=== PATIENT | female | born 1975 | race Caucasian/White ===

== ENCOUNTER → 2022-03-18 10:22 | Outpatient (CLI) | payer OTHER, SELFPAY ==
--- NOTE | ~2022-03-18 | MM_ITS ---
EXAMINATION: MM scrn tish implant BI w cynthia HISTORY: Screening mammogram TECHNIQUE: Craniocaudal and mediolateral oblique 3-D tomosynthesis images with implant displacement a nd synthetic 2-D images were generated. Craniocaudal and mediolateral oblique views of the breasts wi thout implant displacement were obtained using full field digital mammography. CAD analysis was submi tted and interpreted. COMPARISON: 06/14/2019 BREAST PARENCHYMAL COMPOSITION: There are scattered areas of fibroglandular density. FINDINGS: There is no evidence of suspicious mass, calcification, or architectural distortion to sugg est malignancy in either breast. There has been no suspicious interval change. IMPRESSION: 1. No mammographic evidence of malignancy. 2. Recommend routine screening mammography in one year. BI-RADS Category 1: Negative Reviewed, dictated and finalized at location A.
== END ==
PROVIDERS: Visit Provider Obstetrics & Gynecology
DX: Z12.31 Encounter for screening mammogram for malignant neoplasm of breast (principal)
CPT/HCPCS: 77063; 77067

== ENCOUNTER 2024-07-30 09:38 | Outpatient (CLI) | payer BC, SELFPAY ==
--- NOTE | ~2024-07-30 | MM_ITS ---
EXAMINATION: MM scrn tish implant BI w cynthia HISTORY: Screening mammogram TECHNIQUE: Craniocaudal and mediolateral oblique 3-D tomosynthesis images with implant displacement a nd synthetic 2-D images were generated. Craniocaudal and mediolateral oblique views of the breasts wi thout implant displacement were obtained using full field digital mammography. CAD analysis was submi tted and interpreted. COMPARISON: 03/18/2022, 06/14/2019 BREAST PARENCHYMAL COMPOSITION: There are scattered areas of fibroglandular density. FINDINGS: There is no evidence of suspicious mass, calcification, or architectural distortion to sugg est malignancy in either breast. There has been no suspicious interval change. IMPRESSION: No mammographic evidence of malignancy. Recommend routine screening mammography in one year. BI-RADS Category 1: Negative Reviewed, dictated and finalized at location . 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
== END 2024-07-30 09:39 | disposition home or self-care (01) ==
PROVIDERS: PCP Nurse Practitioner Family; Visit Provider Nurse Practitioner Family
DX: Z12.31 Encounter for screening mammogram for malignant neoplasm of breast (principal)
CPT/HCPCS: 77063; 77067

== ENCOUNTER 2024-08-31 12:04 | Outpatient (CLI) | payer BC, SELFPAY ==
--- NOTE | ~2024-08-31 | DEXA_ITS ---
Bone Density Report Name: NATALIE WEISS Age: 49 Sex: Female Ethnicity: White Date of : 1975 Indication: postmenopausal; screening for osteoporosis; history of glucocorticoids; rheumatoid arthritis; Referring Provider: JORGE LUIS, SAWYER Study: Bone densitometry was performed. Exam Date: August 31, 2024 Accession number: [id number] Bone Density: Region BMD T-score Z-score Classification AP Spine(L1-L4) 1.075 0.3 1.0 Normal Femoral Neck (Left) 0.738 -1.0 -0.2 Normal Total Hip (Left) 0.875 -0.6 -0.1 Normal Femoral Neck (Right) 0.714 -1.2 -0.4 Osteopenia Total Hip (Right) 0.913 -0.2 0.2 Normal Total Hip Mean 0.894 -0.4 0.1 Normal World Health Organization criteria for BMD impression classify patients as: Normal (T-score at or above -1.0), Osteopenia (T-score between -1.0 and -2.5), or Osteoporosis (T-score at or below -2.5). 10-year Fracture Risk(1): Major Osteoporotic Fracture 9.0% Hip Fracture 0.7% Reported Risk Factors: [place] (), Neck BMD=0.714, BMI=24.0, glucocorticoids, rheumatoid arthritis (1) FRAX(R) Version 3.08. Fracture probability calculated for an untreated patient. Fracture probability may be lower if the patient has received treatment. Clinical Information Provided by Patient: Has taken Glucocorticoids Has rheumatoid arthritis Patient maximum height was 66.0 Menopause Age: 39 Drinks caffeinated beverages Onset of menses at age 13 Number of children 1 Impression: The patient has low bone mass, based on the Right Femoral Neck T-score. The patient has an estimated ten-year risk of hip fracture of 0.7% and an estimated ten-year risk of major fracture of 9%, based on the WHO FRAX algorithm. The patient has risk factors, including: history of glucocorticoid therapy. Discussion: BONE DENSITY IS LOW AT ONE OR MORE SKELETAL SITES. This patient's lowest T-score is low at one or more skeletal sites. It meets the World Health Organization's (WHO) criteria for ?low bone mass? (T-score between -1.0 and -2.5). The patient's 10-year risk of fracture as calculated by FRAX is less than the threshold where pharmacological therapy is recommended by the National Osteoporosis Foundation (NOF). However, all treatment decisions require clinical judgment and consideration of individual patient factors, including patient preferences, comorbidities, previous drug use, risk factors not captured in the FRAX model (e.g., frailty, falls, vitamin D deficiency, increased bone turnover, interval significant decline in bone density) and possible under or overestimation of fracture risk by FRAX. The patient should follow a healthful lifestyle (good nutrition with adequate calcium and vitamin D, and appropriate weight-bearing exercise). Follow-Up: Consider repeating this study in 2 to 3 years to reassess this patient's status, or sooner if there is some new clinical indication. Reported by: TIFFANY on 08/31/2024 12:37:00 PM. Reviewed, dictated and finalized at location [facility]
--- OUTSIDE RECORDS SUMMARY | 2024-08-31 13:19 | XMS_ITS | Patient Health Record ---
Author Organization [facility] brandan Address [address] [place] [address] Care Team Providers Care Cook Specialty Name Role Phone Diane Caraballo Primary Care Provider [phone] Carlie Powell MD Unavailable Unavailable Reason For Referral No Information Medications Medication SIG (Take, Route, Frequency, Duration) Notes Start Date End Date Status Leflunomide 20 MG TAKE 1 TABLET(20 MG) BY MOUTH EVERY DAY Oral 06/10/2022 Active Ozempic (1 MG/DOSE) 4 MG/3ML inject 1 mg by subcutaneous route once weekly on the same day of each week Subcutaneous [id number] 02/10/2023 Active predniSONE 10 MG 4 po together x 2 da ys then 3 po x 2 days then 2 po x 2 days then 1 x2 days Oral 3 03/21/2023 Active Cimzia 2 X 200 MG/ML inject 1 milliliter (200 mg) by subcutaneous route every 2 weeks in the abdomen or thigh Subcutaneous 7.88371538709899D-00 02/10/2023 Active Immunizations Vaccine Route Administration Date Status Comme nts Infuenza, trivalent, recombinant, preservative free Unknown 04/23/2007 Administered migrated LegPatid= [id number] Date=04/23/2007 Vac= Influenza Infuenza, trivalent, recombinant, preservative free IM Intramuscular 06/25/2015 Administered Tdap Unknown 04/23/2007 Administered migrated LegPatid= [id number] Date=04/23/2007 Vac= Tdap Problems Problem Type SNOMED Code ICD Code Onset Dates Problem Status W/U Status Risk Notes Problem Lumbosacral spondylosis without myelopathy (80660090) Lumbar facet arthrop (721.3) Active confirmed Problem Atypical squamous cells of undetermined significance on cervical Papanicolaou smear (768714295) Papanicolaou smear of cervix with atypical squamous cells of undetermined significance (ASC-US) (795.01) Active confirmed Problem Vitamin D deficiency (56749614) Vitamin D deficiency, unspecified (E55.9) 0 Active confirmed Problem 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, 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 confirmed Problem Dermatitis (969945201) Dermatitis, unspecified (L30.9) Active confirmed Problem Rheumatoid arthritis (29155453) Rheumatoid arthritis, unspecified (M06.9) 1 Active confirmed Problem Behcet's disease (681243752) Behcet's disease (M35.2) 3 Active confirmed Problem Pain in limb (65236893) Pain in unspecified limb (M79.609) 3 Active confirmed Problem Urinary tract infectious disease (disorder) (53396992) Urinary tract infection, site not specified (N39.0) 3 Active confirmed Problem Dyspnea (485088335) Dyspnea, unspecified (R06.00) 0 Active confirmed Problem Dysphagia (79438465) Dysphagia, unspecified (R13.10) 0 Active confirmed Problem Eruption of skin (796245419) Rash and other nonspecific skin eruption (R21) 0 Active confirmed Problem Fatigue (82163152) Other fatigue (R53.83) 0 Active confirmed Problem Edema (08732863) Edema, unspecified (R60.9) 0 Active confirmed Problem Repeated prescription (890407764) Encounter for issue of repeat prescription (Z76.0) 3 Active confirmed Plan Of Treatment No Information Insurance Providers Payer Name Payer Address Payer Phone Subscriber Number Group Number Insured Name Patient Relationship to Insured Coverage Start Date Coverage End Date [employer] [address] [place] [address] [id number] Maryanne Lynch Self - patient is the insured DO NOT USE [id number] Maryanne Lynch Self - patient is the insured 1 [employer] [address] [address] [place] [address] [id number] [phone] Maryanne Lynch Self - patient is the insured BCBS [facility] [address] [place] [address] [id number] Maryanne Lynch Self - patient is the insured 1 1 [employer] [address] [address] [place] [address] [id number] SyedDaniel Other DO NOT USE [id number] Maryanne Lynch Self - patient is the insured 4 Medical (General) History Surgical History Surgery Date(Month/Year) Foot surgery; 2011-03-05 Hysterectomy: Ovaries in 2/2 bleeding; 2 Fat Freezing ; 2011-04-06 Appendectomy; 2011-04-06 Tonsillectomy; 2011-04-06 Breast lift, Date of Procedure: Jun 2012 ; 2012-11-29
--- OUTSIDE RECORDS SUMMARY | 2024-08-31 13:19 | XMS_ITS | Data Portability ---
Author Organization [place] - [facility], Main Office Address [address] [place] [address] Assessment No assessment recorded. Plan of Treatment Reminders Order Date Submit Date Provider Last Modified By Organization Details Last Modified Time Details Appointments None recorded. Lab None recorded. Referral rheumatolog ist referral - Please call patient to schedule an appointment . Thank you. 2023 024 [email or web address] [facility] Medicine - Rheumatology, [address] [place] [address], [address], 4 08:49:59 physical therapist referral - *Please call pt to schedule* 2023 024 [email or web address] [facility], [address] [place], [address], 4 08:44:31 rheumatolog ist referral 2022 023 [email or web address] Tasha James MD, [address] [place], [address], 4 09:01:47 Procedures None recorded. Surgeries None recorded. Imaging None recorded. Medication Orders methylpredn isolone 4 mg tablets in a dose pack 2023 024 [id number], [address], [place], [id number], 4 08:16:27 dextroamphe tamine-amph etamine 10 mg tablet 2023 024 [email or web address] [facility] #[id number], [address] [facility], [place], [id number], 4 11:24:17 dextroamphe tamine-amph etamine 20 mg tablet 2023 024 [id number], [address], [place], [id number], 4 08:29:49 diclofenac sodium 75 mg tablet,fabiola yed release 2023 024 [id number], [address] [place], [address], 4 08:16:38 Patient TargetsNo targets recorded. Patient InstructionsNo instructions recorded. Reason for Referral Packaging Sales Consultant Referral for Lupus erythematosus Referring Physician: Garima Villa [facility], Encounter Date: 05/07/2023 Physical Therapist Referral for Pain of right shoulder joint *Please call pt to schedule* Referring Physician: Garima Villa [facility], Encounter Date: 08/14/2023 Packaging Sales Consultant Referral for Lupus erythematosus RA, Lupus Please call patient to schedule an appointment. Thank you. Referring Physician: Ron Roche [facility] Medicine, Encounter Date: 01/21/2024 Results Created Date Observation Date Name Description Value Unit Range Abnormal Flag Note LastModifiedBy Organization Detail LastModifiedTime Result Notes None recorded. Problems Name Problem SNOMED Code Status Onset Date Resolution Date Notes Provider Name and Address Organization Details Recorded Time Lupus erythematos 679736307 Active 2022 Dmitriy Anderson RN null, [email or web address] 3 09:24:56 Rheumatoid arthritis 83855094 Active 2022 Garima Villa MD [address], [address], [address], [email or web address] 3 09:34:17 Attention deficit hyperactivi ty disorder 042943320 Active 2022 Garima Villa MD [address], [address], [place], [address], [email or web address] 3 09:39:10 Pain of right shoulder joint 6424175492341 9100 Active 2023 Garima Villa MD [address], [address], [place], [address], [employer] 08:14:52 Problem Notes None recorded. Procedures Surgical History Date Name Laterality Status Provider Name and Address Organization Details Recorded Time Hysterectomy completed Garima Villa MD [address], [address], [place], [address], [employer] 05/07/2023 09:33:10 tonsillectomy completed Garima Villa MD [address], [place], [address], [employer] 05/07/2023 09:33:57 Imaging Results None recorded. Procedure Notes None recorded. Medical Equipment None Reported. Allergies No known drug allergies Medications Name Sig Start Date Stop Date Status Note LastModified by Organization Details LastModified Time amoxicillin 500 mg capsule active Not Available Not Available Not Available methocarbam ol 500 mg tablet TAKE 1 TABLET BY MOUTH EVERY 8 HOURS NEEDED FOR MUSCLE SPASMS FOR 5 DAYS active Not Available Not Available No t Available ivermectin 3 mg tablet TAKE 4 TABLETS BY MOUTH EVERY DAY FOR 3 DAYS active Not Available Not Available No t Available prednisone 10 mg tablet TAKE 1 TABLET BY MOUTH EVERY DAY active Not Available Not Available No t Available azithromyci n 250 mg tablet active Not Available Not Available Not Available valacyclovi r 1 gram tablet TAKE 1 TABLET BY MOUTH EVERY DAY active Not Available Not Available No t Available prednisone 20 mg tablet TAKE 2 TABLETS BY MOUTH DAILY FOR 5 DAYS active Not Available Not Available No t Available dextroamphe tamine-amph etamine 10 mg tablet TAKE 1 TABLET BY MOUTH TWICE DAILY 02/22 completed Not Available Not Available Not Available phentermine 37.5 mg tablet TAKE ONE TABLET BY MOUTH DAILY active Not Available Not Available No t Available leflunomide 20 mg tablet Take 1 tablet every day by oral route. active Not Available Not Available No t Available amoxicillin 500 mg tablet TAKE 1 TABLET BY MOUTH TWICE DAILY 08/13 completed Not Available Not Available Not Available clindamycin 1 % topical gel APPLY TOPICALLY TO THE AFFECTED AREA DAILY active Not Available Not Available No t Available neomycin-po lymyxin-dex ameth 3.5 mg/mL-10,00 0 unit/mL-0.1 % eye drops SHAKE LIQUID AND INSTILL 1 DROP IN LEFT EYE THREE TIMES DAILY FOR 7 DAYS AND DISCONTIN UE active Not Available Not Available No t Available dextroamphe tamine-amph etamine 20 mg tablet Take 1 tablet twice a day by oral route. active Not Available Not Available No t Available budesonide 0.5 mg/2 mL suspension for nebulizatio n USE 1 VIAL VIA NEBULIZER TWICE DAILY NEEDED active Not Available Not Available No t Available diclofenac sodium 75 mg tablet,fabiola yed release TAKE 1 TABLET TWICE A DAY BY ORAL ROUTE NEEDED 2023 active Not Available Not Available Not Avai lable montelukast 10 mg tablet TAKE 1 TABLET BY MOUTH EVERY DAY active Not Available Not Available No t Available methylpredn isolone 4 mg tablets in a dose pack FOLLOW PACKAGE DIRECTION S active Not Available Not Available No t Available albuterol sulfate HFA 90 mcg/actuati on aerosol inhaler INHALE 2 PUFFS BY MOUTH EVERY 4 TO 6 HOURS NEEDED FOR COUGH OR BRONCHOSP ASM active Not Available Not Available No t Available progesteron e micronized 100 mg capsule TAKE 1 CAPSULE BY MOUTH EVERY NIGHT AT BEDTIME active Not Available Not Available No t Available nitrofurant oin monohydrate /macrocryst als 100 mg capsule TAKE 1 CAPSULE BY MOUTH TWICE DAILY FOR 7 DAYS active Not Available Not Available No t Available Evamist 1.53 mg/spray (1.7 %) transdermal spray APPLY 1 SPRAY TO THE WRIST ONCE DAILY active Not Available Not Available No t Available Ozempic 1 mg/dose (4 mg/3 mL) subcutaneou s pen injector active Not Available Not Available Not Available Vuity 1.25 % eye drops INSTILL 1 DROP IN BOTH EYES EVERY MORNING FOR HELP WITH READING active Not Available Not Available No t Available Vitals Date Recorded Body weight Body mass index (BMI) Body height Body temperature Heart rate Oxygen saturation Oxygen saturation in Arterial blood by Pulse oximetry Systolic blood pressure Diastolic blood pressure Provider Name and Address Organization Details Last Updated DateTime 3 76545.9 3 g 22.6 kg/m2 167.64 cm 98 [degF] 109 /min 98 % 98 % 122 mm[Hg] 82 mm[Hg] Dmitriy Anderson RN [facility] 3 09:23:39 Date Recorded Body height Body mass index (BMI) Body weight Body temperature Heart rate Oxygen saturation Oxygen saturation in Arterial blood by Pulse oximetry Systolic blood pressure Diastolic blood pressure Provider Name and Address Organization Details Last Updated DateTime 4 167.64 cm 23.7 kg/m2 01614.0 8 g 98.2 [degF] 92 /min 98 % 98 % 118 mm[Hg] 72 mm[Hg] Elizabeth Cameron LPN [place] [facility] 4 08:05:00 Date Recorded Body height Body mass index (BMI) Body weight Body temperature Heart rate Oxygen saturation Oxygen saturation in Arterial blood by Pulse oximetry Systolic blood pressure Diastolic blood pressure Provider Name and Address Organization Details Last Updated DateTime 4 167.64 cm 23.9 kg/m2 26925.6 7 g 98.1 [degF] 93 /min 98 % 98 % 120 mm[Hg] 80 mm[Hg] Dmitriy Anderson RN [facility] 4 08:15:52 Date Recorded Body height Body mass index (BMI) Body weight Body temperature Heart rate Oxygen saturation Oxygen saturation in Arterial blood by Pulse oximetry Systolic blood pressure Diastolic blood pressure Provider Name and Address Organization Details Last Updated DateTime 4 167.64 cm 22.9 kg/m2 78441.1 2 g 97 [degF] 98 /min 99 % 99 % 126 mm[Hg] 74 mm[Hg] Nicky Kwon RN [facility] 4 08:05:20 Social History Question Answer Notes LastModified by Organizat ion Details LastModified Time Tobacco Smoking Status Never Smoker Dmitriy Anderson RN [facility], [place] [facility] 05/07/2023 09:25:40 What Was The Date Of Your Most Recent Tobacco Screening? 05/07/2023 Information not available 05/07/2023 Sex: Unknown Functional Status None recorded. Mental Status None recorded. Family History Relationship Description Onset Age of this Age Resolved Age Notes LastModified by Organization Details LastModified Time Father No current problems or disability [email or web address] Not available 09:24:48 Mother Suicide Not available 05/07/2023 09:31:44 Medical History No medical history recorded. Gynecological HistoryNo gynecological history recorded. Obstetrics History GPAL:G 0 P 0 0 0 0 Past Encounters Encounter ID Performer Location Encounter Start Date Encounter Closed Date Diagnosis/Indication Diagnosis SNOMED-CT Code Diagnosis ICD10 Code Diagnosis Note [id number] Garima Villa MD [facility] Primary Care [facility] [address] [place] [address] 05/07/2023 09:10:06 05/07/2023 09:51:34 Lupus erythematosus 635122554 L93.0 M06.9 Needs new rheumatolo gistReferr al givenConti nue leflunomid e 20 mg daily Attention deficit hyperactivity disorder 385351366 F90.9 stableno refill needed [id number] Garima Villa MD [facility] Primary Care [facility] [address] [place] [address] 08/14/2023 07:57:30 08/14/2023 08:18:47 Pain of right shoulder joint 7180397458 8266635 M25.511 call in 4-6 weeks for ortho referral if no improvemen t [id number] Garima Villa MD [facility] Primary Care [facility] [address] [place] [address] 10/22/2023 08:11:36 10/22/2023 08:29:40 Attention deficit hyperactivity disorder 177291311 F90.9 no longer effectivei ncrease adderall to 20 bidPt understand s this medication has risk for abuse/depe ndence and agrees to take it only as prescribed and to guard from loss/theft f/u in 3 months or sooner if needed [id number] ROSA Jarrett [facility] Primary Care [facility] [address] [place] [address] 11/24/2023 11:01:59 11/24/2023 15:27:32 [id number] Ron Roche, ROSA [facility] Primary Care Karan bueno [address] [place] [address] 01/21/2024 07:59:07 01/21/2024 08:18:04 Lupus erythematosus 011275552 L93.0 M06.9 pt needs new referral for rheumatolo gist Long-term drug therapy 785132067 Z79.899 Pt denies any lending, selling, or borrowing of medication s. Denies any cp, sob, palpitatio ns, or unusual weight loss.Revie wed controlled substance agreement requiremen ts. Refill given.[place] PDMP checked today. Attention deficit hyperactivity disorder 137240160 F90.9 Health Concerns Section Related Observation LastModified by Organization Detai ls LastModified Time None Recorded Concern Status LastModified by Organization Details LastModified Time None Recorded Advance Directives Directive None Recorded Payers Encounter Date Sequence Insurance Name Policy Number Policy Serna Covered Member ID Serna Member ID Guarantor Name 05/07/2023 1 [place] [id number] Daniel Lynch [id number] Daniel Lynch 08/14/2023 1 [place] [id number] Daniel Lynch [id number] Daniel Lynch 10/22/2023 1 [place] [id number] Daniel Lynch [id number] Daniel Lynch 11/24/2023 1 [place] [id number] Daniel Lynch [id number] Daniel Lynch 01/21/2024 1 [place] [id number] Daniel Lynch [id number] Daniel Lynch Notes Date Note Type Note Provider Name and Address Organization Details Recorded Time 05/07/2023 text/html Here to ariel guy, has h/o SLE and RA. She has been seeing her chain tender at [facility] but they are going to retire, needs new specialist. Has been on leflunomide and recently failed humira. Rheumatology suggested new medication but insurance would not improve. Overall feeling ok, having some muscle aches. Takes adderall 10 mg bid as prescribed, no selling/lending/timothy ing, no heavy etoh or illegal drug use. It is very helpful for focus/concentration. Garima Villa MD [address] [address], [place], [address], [place] [facility] 05/07/2023 09:45:25 08/14/2023 text/html Fell in June in your garage, a few weeks after the fall she noticed pain in the right shoulder. Started to notice pain in AM. She has pain with certain movements, can't reach overhead, can't reach behind her, hard to sleep at night due to pain. Using tylenol arthritis, not helpful. No numbness/tingling, +weakness. Garima Villa MD [address] [address], [place], [address], [place] [facility] 09/02/2023 07:49:39 10/22/2023 text/html Here to ariel guy, has h/o SLE and RA. She has been seeing her chain tender at [facility] but they are going to retire, needs new specialist. Has been on leflunomide and recently failed humira. Rheumatology suggested new medication but insurance would not improve. Overall feeling ok, having some muscle aches. Takes adderall 10 mg bid as prescribed, no selling/lending/timothy ing, no heavy etoh or illegal drug use. It is very helpful for focus/concentration. updates 10/22/23: taking adderall 10 mg bid, she has been on it for some time and feels she has built a tolerance to it. It seems to wear off too soon in both AM and afternoon. No chest pain or sob Garima Villa MD [address], [facility] [address], [place], [address], [place] [facility] 10/25/2023 09:57:49 01/21/2024 text/html Pt is here for f/u Ron alfaro, MAJOR ASSEMBLER[employer]C [address], [facility] [address], [place], [address], [facility] [employer] [facility] 01/21/2024 08:16:42 OBGyn Episode No OBEpisode recorded.
--- OUTSIDE RECORDS SUMMARY | 2024-08-31 13:19 | XMS_ITS | Clinical Summary ---
Author Organization [facility] Address [address] [place] [address] Care Team Providers Care Load Haul Dump Operator Name Role Phone Carlie Powell MD Primary Care Provider Source Comments [facility],non-owned Affiliates and Associated Physician Practices is amultiple site organization consisting of ambulatory clinics and hospital sitesin [place], [place], [place] and [place]. This disclosure is being madepursuant to the Care Everywhere program and may not contain all information available regarding this patient. Last updated 18.[facility] Social History Tobacco Use Types Packs/Day Years Used Date Smoking Tobacco: Never Assessed Sex and Gender Information Value Date Recorded Sex Assigned at Not on file Gender Identity Not on file Sexual Orientation Not on file Plan of Treatment Health Maintenance Due Date Last Done Comments COLOGUARD (AGES 45-75) - COL ON CA SCREENING 1974 COLON MONITORING 1974 COLONOSCOPY - COLON CA SCREENING 1974 CT COLONOGRAPHY - COLON CA SCREENING 1974 Colorectal Cancer Screening 1974 FIT - COLON CA SCREENING 1974 FLEX SIG - COLON CA SCREENING 1974 LIPID TESTING 1974 MAMMOGRAM 1974 PAP SMEAR 1974 HIV SCREENING 1989 HEPATITIS C SCREENING 02/28/1992 DTAP/TDAP/TD VACCINES (1 - Tdap) 1993 HEPATITIS B VACCINE (1 of 3 - 19+ 3-dose series) 1993 COVID-19 VACCINE ( - 2023-2 5 season) 2024 INFLUENZA VACCINE (#1) 2024 PNEUMOCOCCAL VACCINE 50+ (1 of 1 - PCV) 2024 ZOSTER VACCINE (1 of 2) 2024 DEPRESSION SCREENING 06/08/2024 HIB VACCINE Aged Out No longer eligi ble based on patient's age to complete this topic HPV VACCINE Aged Out No longer eligi ble based on patient's age to complete this topic MENINGOCOCCAL (Group B) VACC INE SHARED DECISION-MAKING Aged Out No longer eligibl e based on patient's age to complete this topic MENINGOCOCCAL GROUPS A/C/Y/W VACCINE Aged Out No longer eligible b ased on patient's age to complete this topic Care Teams Load Haul Dump Operator Relationship Specialty Start Date End Date Carlie Powell MD [address] [facility] [address] [place] [id number] PCP - General 04/05/09
--- OUTSIDE RECORDS SUMMARY | 2024-08-31 13:19 | XMS_ITS | Encounter Summary ---
Author Organization [facility] Address [address] [place] [address] Care Team Providers Care Senior Programmer Name Role Phone Carlie Powell MD Primary Care Provider Encounter Details Date Type Department Care Team (Late st Contact Info) Description 10/02/2021 Lab Requisition [facility] [address] [place] [address] Carlie Powell MD [address] [facility] [address] [place] [address] Social History Tobacco Use Types Packs/Day Years Used Date Smoking Tobacco: Never Assessed Sex and Gender Information Value Date Recorded Sex Assigned at Not on file Gender Identity Not on file Sexual Orientation Not on file documented as of this encounter Plan of Treatment Not on file documented as of this encounter Procedures Procedure Name Priority Date/Time Associated Diagnosis Comments D-DIMER STAT 10/02/2021 9:50 AM CDT CBC W AUTO DIFFERENTIAL STAT 10/02/2021 9:50 AM CDT COMPREHENSIVE METABOLIC PANEL STAT 10/02/2021 9:50 AM CDT documented in this encounter Results * D-DIMER (10/02/2021 9:50 AM CDT) D-Dimer 0.34 0.27 - 0.50 ug/mL FEU 10/02/2021 12:18 PM CDT [facility] Blood BLOOD SPECIMEN / Unknown Venipuncture / Unknown 10/02/2021 9:50 AM CDT 10/02/2021 11:57 AM CDT [facility] - 10/02/2021 12:18 PM CDT In the absence of clinical symptoms, a value less than or equal to 0.5 mcg/mL FEU significantly decreases the probability of PE/DVT (negative predictive value >95%). 1 mcg/ml FEU = 1 Fibrinogen Equivalent Unit (approximates 0.5 mcg/mL of D- dimer). Carlie Powell MD LAB - COAGULATION O RDERABLES [facility] [address] [place] [address] * COMPREHENSIVE METABOLIC PANEL (10/02/2021 9:50 AM CDT) Glucose 79 70 - 105 mg/dL 10/02/2021 12:18 PM CDT [facility] Sodium 139 136 - 145 mmol/L 10/02/2021 12:18 PM CDT [facility] Potassium 4.3 3.5 - 5.1 mmol/L 10/02/2021 12:18 PM CDT [facility] Chloride 106 98 - 107 mmol/L 10/02/2021 12:18 PM CDT [facility] CO2 24 23 - 31 mmol/L 10/02/2021 12:18 PM CDT [facility] Calcium 9.1 8.4 - 10.4 mg/dL 10/02/2021 12:18 PM CDT [facility] Anion Gap 9 8 - 18 mmol/L 10/02/2021 12:18 PM CDT [facility] BUN 15 7 - 18.7 mg/dL 10/02/2021 12:18 PM CDT [facility] Creatinine 0.74 0.57 - 1.11 mg/dL 10/02/2021 12:18 PM CDT [facility] Alkaline Phosphatase 52 40 - 150 U/L 10/02/2021 12:18 PM CDT [facility] ALT 20 0 - 61 U/L 10/02/2021 12:18 PM CDT [facility] AST 14 5 - 34 U/L 10/02/2021 12:18 PM CDT [facility] Protein Total 6.6 6.4 - 8.3 gm/dL 10/02/2021 12:18 PM CDT [facility] Albumin 4.3 3.5 - 5.2 gm/dL 10/02/2021 12:18 PM CDT [facility] Bilirubin Total 0.3 0.2 - 1.2 mg/dL 10/02/2021 12:18 PM CDT [facility] eGFR by CKD-EPI >90 >=90 mL/min/1.7 3 m2 10/02/2021 12:18 PM CDT [facility] Blood BLOOD SPECIMEN / Unknown Venipuncture / Unknown 10/02/2021 9:50 AM CDT 10/02/2021 11:57 AM CDT [facility] - 10/02/2021 12:18 PM CDT eGFR result was calculated using the updated CKD-EPI Creatinine Equations (2020). Prior to go live 2021 the eGFR was calculated using the MDRD calculation. Please note Reference Range change. Carlie Powell MD LAB - CHEMISTRY ORD ERABLES [facility] [address] [place] [address] * (ABNORMAL) CBC WITH DIFFERENTIAL (10/02/2021 9:50 AM CDT) [facility] WBC 6.3 4.4 - 10.7 x10E9/L 10/02/2021 12:08 PM CDT [facility] WBC Corrected 10/02/2021 12:08 PM CDT [facility] RBC 4.97 3.80 - 5.20 x10E12/L 10/02/2021 12:08 PM CDT [facility] Hemoglobin 15.9(H) 12.0 - 15.6 gm/dL 10/02/2021 12:08 PM CDT [facility] Hematocrit 47.3(H) 35.9 - 45.5 % 10/02/2021 12:08 PM CDT [facility] MCV 95.2 80.7 - 98.3 fl 10/02/2021 12:08 PM CDT [facility] MCH 32.0 26.7 - 34.0 pg 10/02/2021 12:08 PM CDT [facility] MCHC 33.6 30.8 - 35.9 gm/dL 10/02/2021 12:08 PM [facility] Platelet Count 374 153 - 416 x10E9/L 10/02/2021 12:08 PM [facility] RDW-CV 12.2 12.1 - 14.9 % 10/02/2021 12:08 PM [facility] MPV 9.7 9.4 - 12.9 fl 10/02/2021 12:08 PM [facility] Neutrophils % 59.7 44.0 - 73.0 % 10/02/2021 12:08 PM [facility] Lymphocytes % 28.4 20.0 - 43.0 % 10/02/2021 12:08 PM [facility] Monocytes % 8.6 5.0 - 13.0 % 10/02/2021 12:08 PM [facility] Eosinophils % 1.1 0.0 - 6.0 % 10/02/2021 12:08 PM [facility] Basophils % 1.4 0.0 - 2.0 % 10/02/2021 12:08 PM [facility] Immature Granulocytes 0.8 0 - 1 % 10/02/2021 12:08 PM [facility] Neutrophil Absolute 3.76 2.01 - 7.14 x10E9/L 10/02/2021 12:08 PM [facility] Lymphocytes Absolute 1.79 1.07 - 3.94 x10E9/L 10/02/2021 12:08 PM [facility] Monocytes Absolute 0.54 0.26 - 1.07 x10E9/L 10/02/2021 12:08 PM [facility] Eosinophils Absolute 0.07 0 - 0.47 x10E9/L 10/02/2021 12:08 PM [facility] Basophils Absolute 0.09(H) 0 - 0.08 x10E9/L 10/02/2021 12:08 PM [facility] Immature Granulocytes Absolute 0.05 0.00 - 0.06 x10E9/L 10/02/2021 12:08 PM [facility] nRBC Auto 0 /100 WBC 10/02/2021 12:08 PM [facility] Blood BLOOD SPECIMEN / Unknown Venipuncture / Unknown 10/02/2021 9:50 AM CDT 10/02/2021 11:57 AM CDT Carlie Powell MD LAB - HEMATOLOGY OR DERABLES Performing Organization Address City/State/[facility] Co de Phone Number [facility] [address] [place], [place] [phone] documented in this encounter Visit Diagnoses Not on filedocumented in this encounter Care Teams Senior Programmer Relationship Specialty Start Date End Date Carlie Powell MD [address] [address] [place] [id number] PCP - General 04/05/09 documented as of this encounter
--- OUTSIDE RECORDS SUMMARY | 2024-08-31 13:20 | XMS_ITS ---
Author Organization [facility] brandan Address [address] [facility] [address] [place] [address] Care Team Providers Care Viscosity Worker Name Role Phone Diane Caraballo Primary Care Provider Carlie Powell MD Unavailable Unavailable zzzzMigration, zzzzProvider Unavailable Unav ailable REASON FOR VISIT [facility] [place] Encounters Encounter Location Date Provider Diagnosis [facility] [address] [address] [place] [address] 03/28/2023 zzzzProvider zzzzMigration Plan Of Treatment Medication Medication Name Sig Start Date Stop Date Notes Monurol 3 GM take 1 sachet (3 gram) dissolved in 3 to 4 ounces (1/2 cup) of water by oral route as a single dose Oral 0 12/25/2012 Cymbalta 30 MG take 1 capsule (30 mg) by oral route once daily with food Oral 1 for 30 08/17/2014 03/15/[address] 500 MG take 1 tablet (500 mg) by oral route 2 times per day with food Oral 2 03/20/2017 Naproxen 500 MG take 1 tablet (500 mg) by oral route 2 times per day with food Oral 2 08/15/2016 Cefuroxime Axetil 500 MG take 1 tablet ( 500 mg) by oral route every 12 hours for 10 days Oral 2 for 05/26/2019 06/05/2019 levoFLOXacin 500 MG take 1 tablet (500 mg) by oral route once daily for 10 days Report any tendon pain Oral 1 for 09/29/2012 10/09/2012 Proventil HFA 108 (90 Base) MCG/ACT inhale 2 puffs (180 mcg) by inhalation route every 4-6 hours as needed Inhalation 6 09/05/2019 Phentermine HCl 30 mg take 1 capsule (30 mg) by oral route once daily before breakfast for 30 days Oral 1 for 12/25/2019 01/24/2020 Medrol 4 MG take by oral route as directed per package instructions for 6 days Oral 0 for 08/29/2021 09/04/2021 Procardia XL 30 MG take 1 tablet (30 mg) by oral route once daily at bedtime Oral 1 for 07/24/2014 02/19/2015 Zithromax 250 MG take 2 tablets (500 mg) by oral route once daily for 1 day then 1 tablet (250 mg) by oral route once daily for 4 days Oral 1 for 12/16/2012 12/21/2012 Leflunomide 20 MG take 1 tablet (20 mg) by oral route once daily for 30 days Oral 1 for 12/13/2021 03/13/2022 Valtrex 500 MG take 1 tablet (500 mg) by oral route once daily Oral 1 07/30/2018 Imuran 50 mg take 1 tablet (50 mg) by oral route once daily for 30 days Oral 1 for 10/02/2015 12/01/2015 dilTIAZem HCl ER Beads 120 MG take 1 capsule (120 mg) by oral route once daily for 30 days Oral 1 for 04/14/2021 11/10/2021 Humira Pen 40 MG/0.4ML inject 0.4 milliliter (40 mg) by subcutaneous route every 2 weeks in the abdomen or thigh (rotate sites) Subcutaneous [id number] for 08/09/2021 08/04/2022 predniSONE 5 MG take 3 tablets by oral route daily for 7 days, then 2 tablets QD for 7 days, then 1 tablet QD f Oral 1 04/24/2022 Amoxicillin-Pot Clavulanate 875-125 MG take 1 tablet by oral route every 12 hours for 10 days Oral 2 for 02/01/2019 02/11/2019 predniSONE 10 MG Take one tablet orally for 5 days then half a tablet for 5 days then half tablet every other day for 5 doses and stop Oral for 08/02/2015 08/23/2015 Benzoyl Peroxide-Erythromycin 5-3 % apply to the affected area(s) by topical route 2 times per day in the morning and evening External 2 09/07/2019 Adderall 10 MG take 1 tablet (10 mg) by oral route 2 times per day before breakfast and at noon for 30 days Oral 2 for 02/24/2023 03/26/2023 Cyclobenzaprine HCl 10 MG take 1 tablet (10 mg) by oral route Q bed Oral 2 for 02/22/2015 06/22/2015 Benzonatate 200 MG take 1 capsule (200 mg) by oral route 3 times per day as needed for cough for 10 days Oral 3 for 05/12/2022 05/22/2022 Plaquenil 200 MG take 2 tablets (400 mg) by oral route once daily for 90 days Oral 1 for 08/27/2015 08/21/2016 HYDROcodone-Acetaminophe n 5-325 MG 1/2-one every 6hrs as needed Oral for 05/24/2012 09/21/2012 Cefdinir 300 MG take 1 capsule (300 mg) by oral route every 12 hours for 10 days Oral 2 for 11/08/2014 11/18/2014 Spironolactone 100 MG take 1 tablet (100 mg) by oral route once daily Oral 1 for 02/27/2014 05/28/2014 vicodin 5/500 1/2-one every 6 hrs as needed 11/29/2012 *Reorder from [employer] for eRx and Interaction Alerts* NIFEdipine ER Osmotic Release 30 MG take 1 tablet (30 mg) by oral route once daily for 30 days Oral 1 for 08/10/2013 12/08/2013 Qsymia 3.75-23 MG take 1 capsule by oral route once daily in the morning Oral 1 for 12/05/2014 03/05/2015 Phentermine HCl 37.5 MG TAKE 1 TABLET BY MOUTH EVERY DAY 1 OR 2 HOURS BEFORE BREAKFAST Oral 01/29/2018 01/29/2018 Spironolactone 50 MG take 1 tablet (50 mg) by oral route once daily for 30 days Oral 1 for 02/28/2013 07/28/2013 Topamax 25 MG take 1 tablet (25 mg) by oral route once daily Oral 1 for 02/05/2021 03/07/2021 Cimzia 2 X 200 MG/ML inject 1 milliliter (200 mg) by subcutaneous route every 2 weeks Subcutaneous [id number] for 04/21/2022 10/18/2022 Zithromax Z-Adán 250 MG take 2 tablets by oral route once daily for 1 day then 1 tablet by oral route once daily for 4 days Oral 1 for 5 11/26/2017 valACYclovir HCl 1 GM take 1 tablet (1,0 00 mg) by oral route 3 times per day for 7 days Oral 3 for 7 10/05/2013 10/12/2013 Clarithromycin 500 MG take 1 tablet (500 mg) by oral route every 12 hours for 10 days Oral 2 for 05/20/2022 05/30/2022 Wegovy 0.25 MG/0.5ML inject 0.25 mg by subcutaneous route once weekly on the same day of each week Subcutaneous [id number] 05/20/2022 Metrogel 1 % apply a thin layer to the affected area(s) of face after washing by topical QD ; rub in gently and completely External 1 for 09/05/2019 02/02/2020 Tetracaine HCl 0.5 % instill 1 drop in affected eye 4 times a day Ophthalmic 4 11/02/2016 Enbrel SureClick 50 MG/ML inject 1 milliliter (50 mg) by subcutaneous route once weekly for 30 days Subcutaneous [id number] for 02/18/2022 08/17/2022 Potassium Chloride ER 10 MEQ take 2 capsules (20 meq) by oral route twice daily with food Oral 1 01/10/2015 Ciprofloxacin HCl 0.30% instill 1 drop i nto affected eye(s) Q 2 hrs while awake for 2 days then 1 drop Q 4 hrs while awake for 5 days Ophthalmic 12 for 2 11/02/2016 TOPIRAMATE 25MG TABLETS TAKE 1 TABLET(25 MG) BY MOUTH EVERY DAY for 30 04/09/2021 06/08/2021 *Reorder from [employer] for eRx and Interaction Alerts* Bactrim DS 800-160 MG take 1 tablet by oral route every 12 hours for 7 days Oral 2 for 7 12/09/2011 12/16/2011 Phenazopyridine HCl 200 MG take 1 tablet (200 mg) by oral route 3 times per day after meals for 2 days Oral 3 for 2 08/13/2016 08/15/2016 Belsomra 10 mg take 1 po Q bed within 30 minutes of bedtime.Take only if at least 7 hrs of bedtime remain before planned time of waking. Oral 0 07/23/2017 Macrobid 100 MG take 1 capsule (100 mg) by oral route every 12 hours with food for 7 days Oral 2 for 7 07/31/2016 08/07/2016 Cipro 250 MG take 1 tablet (250 mg) by oral route every 12 hours for 7 days Oral 2 for 7 08/13/2016 08/20/2016 Ivermectin 1 % apply a pea-sized amount by topical route once daily to cover areas of face with thin layer avoiding the eyes and lips topical 1 09/06/2019 Lasix 40 MG take 1 tablet (40 mg) by oral route once daily for 30 days Oral 1 for 01/10/2015 05/10/2015 HYDROcodone-Acetaminophe n 10-325 MG take 1 tablet by oral route every 4-6 hours as needed for pain Oral 6 for 07/31/2016 08/30/2016 Valium 5 MG take 1 tablet (5 mg) by oral route q bed Oral 2 for 12/19/2015 05/17/2016 Vitamin D (Ergocalciferol) 70677 UNIT take 1 capsule (50,000 unit) by oral route once weekly for 90 days Oral [id number] for 09/04/2015 03/02/2016 Folic Acid 1 MG take 1 tablet (1 mg) by oral route once daily for 90 days Oral 1 for 08/02/2015 07/27/2016 Demerol 50 mg take half to one by oral route every 4 hours as needed Oral 6 01/25/2015 *Pick strength-form from [employer] for eRX* CellCept 500 MG take 1 tab ( 500 mg) by oral route 2 times per day Oral 2 for 07/14/2019 09/12/2019 traZODone HCl 50 MG take 1 tablet po Q bed Oral 3 01/25/2015 Darvocet-N 100 one po at onset MORRIS PRN 04/12/2010 *Reorder from [employer] for eRx and Interaction Alerts* Methotrexate Sodium 2.5 MG take 4 tablets by oral route once a week Oral [id number] for 07/23/2020 09/21/2020 sulfaSALAzine 500 MG take 1 tablet (500 mg) by oral route 2 times per day after meals Oral 4 for 60 09/27/2013 11/26/2013 Percocet 5-325 MG take 1 - 2 tablets by oral route every 4-6 hours as needed for 30 days Oral 6 for 09/02/2013 10/02/2013 Multivitamin 1 Every Day Oral 04/23/2007 Colchicine 0.6 MG 1 Every Day Oral 02/09/2009 PHENTERMINE 37.5MG TABLETS TAKE 1 TABLET BY MOUTH EVERY DAY 1-2 HOURS PRIOR TO BREAKFAST for 02/01/2021 04/02/2021 *Reorder from [employer] for eRx and Interaction Alerts* Neurontin 300 MG take 1 capsule (300 mg) by oral route Q bed Oral 3 for 08/01/2013 11/29/2013 Progress Notes * Maryanne LYNCH RDOB:[birth year] (49 yo F)Acc No.[id number]:03/28/2023 Patient: Jarrod Maryanne JUAN :1975 A ge:48 Y S ex:Female Phone: Address:[address] [place] [address], [address] * Refills Stop Adderall Tablet, 10 MG, Oral, 60, take 1 tablet (10 mg) by oral route 2 times per day before breakfast and at 2 pm for 30 days, 2, 30 Stop Adderall Tablet, 10 MG, Oral, 60, take 1 tablet (10 mg) by oral route 2 times per day before breakfast and at noon for 30 days, 2, 30 Stop HYDROcodone-Acetaminophen Tablet, 10-325 MG, Oral, 120, take 1 tablet by oral route every 4-6 hours as needed for pain for 30 days, 6, 30 Stop Macrobid Capsule, 100 MG, Oral, 14, take 1 capsule (100 mg) by oral route every 12 hours with food for 7 days, 2, 7 Stop Macrobid Capsule, 100 MG, Oral, 14, take 1 capsule (100 mg) by oral route every 12 hours with food, 2 Stop Methotrexate Sodium Tablet, 2.5 MG, Oral, 20, take 4 tablets by oral route once a week, [id number], 30 Stop Percocet Tablet, 5-325 MG, Oral, 50, take 1 - 2 tablets by oral route every 4-6 hours as needed, 6 Stop Phentermine HCl Tablet, 37.5 MG, Oral, 30, one alternating with one half every other day, 1, 30 Stop traZODone HCl Tablet, 50 MG, Oral, 30, take 1 tablet po Q bed, 3 Stop Valium Tablet, 5 MG, Oral, 30, take 1 tablet (5 mg) by oral route q bed, 2, 30 Stop Vitamin D (Ergocalciferol) Capsule, 19821 UNIT, Oral, 13, take 1 capsule (50,000 unit) by oral route once weekly for 90 days, [id number], 90 Stop Belsomra Tablet, 10 mg, Oral, 30, take 1 po Q bed within 30 minutes of bedtime.Take only if at least 7 hrs of bedtime remain before planned time of waking., 0 Stop Adderall Tablet, 10 MG, Oral, 60, take 1 tablet (10 mg) by oral route 2 times per day before breakfast and at 2 pm for 30 days, 2, 30 Stop Cefdinir Capsule, 300 MG, Oral, 20, take 1 capsule (300 mg) by oral route every 12 hours for 10 days, 2, 10 Stop Cyclobenzaprine HCl Tablet, 10 MG, Oral, 30, take 1 tablet (10 mg) by oral route Q bed, 2, 30 Stop HYDROcodone-Acetaminophen Tablet, 5-325 MG, Oral, 50, 1/2-one every 6hrs as needed, 30 Stop HYDROcodone-Acetaminophen Tablet, 10-325 MG, Oral, 180, take 1 tablet by oral route every 4-6 hours as needed for pain, 6 Stop HYDROcodone-Acetaminophen Tablet, 10-325 MG, Oral, 180, take 1 tablet by oral route every 4-6 hours as needed for pain, 6, 30 Stop Medrol Tablet Therapy Pack, 4 MG, Oral, 1, take as directed Stop Medrol Tablet Therapy Pack, 4 MG, Oral, 1, take by oral route as directed per package instructions, 0 Stop Phentermine HCl Tablet, 37.5 MG, Oral, 30, TAKE 1 TABLET BY MOUTH EVERY DAY 1 OR 2 HOURS BEFORE BREAKFAST Stop Plaquenil Tablet, 200 MG, Oral, 180, take 2 tablets (400 mg) by oral route once daily for 90 days, , 90 Stop predniSONE Tablet, 10 MG, Oral, 10, Take one tablet orally for 5 days then half a tablet for 5 days then half tablet every other day for 5 doses and stop, 21 Stop predniSONE Tablet, 5 MG, Oral, 42, take 3 tablets by oral route daily for 7 days, then 2 tablets QD for 7 days, then 1 tablet QD f, 1 Stop Valtrex Tablet, 500 MG, Oral, 30, take 1 tablet (500 mg) by oral route once daily, 1 Stop Zithromax Tablet, 250 MG, Oral, 6, take 2 tablets (500 mg) by oral route once daily for 1 day then 1 tablet (250 mg) by oral route once daily for 4 days, 1, 5 Stop Adderall Tablet, 10 MG, Oral, 60, take 1 tablet (10 mg) by oral route 2 times per day before breakfast and at noon no phentermine while taking, 2 Stop Adderall Tablet, 10 MG, Oral, 60, take 1 tablet (10 mg) by oral route 2 times per day before breakfast and at noon for 30 days, 2, 30 Stop CellCept Tablet, 500 MG, Oral, 60, take 1 tab ( 500 mg) by oral route 2 times per day, 2, 30 Stop Darvocet-N 100, 30.00, one po at onset MORRIS PRN Stop HYDROcodone-Acetaminophen Tablet, 10-325 MG, Oral, 180, take 1 tablet by oral route every 4-6 hours as needed for pain, 6 Stop HYDROcodone-Acetaminophen Tablet, 10-325 MG, Oral, 120, take 1 tablet by oral route every 4-6 hours as needed for pain for 30 days, 6, 30 Stop HYDROcodone-Acetaminophen Tablet, 10-325 MG, Oral, 180, take 1 tablet by oral route every 4-6 hours as needed for pain, 6, 30 Stop Leflunomide Tablet, 20 MG, Oral, 30, take 1 tablet (20 mg) by oral route once daily for 30 days, 1, 30 Stop Phentermine HCl Tablet, 37.5 MG, Oral, 30, TAKE 1 TABLET BY MOUTH EVERY DAY 1 OR 2 HOURS BEFORE BREAKFAST Stop Phentermine HCl Tablet, 37.5 MG, Oral, 30, TAKE 1 TABLET BY MOUTH ONCE DAILY 1 TO 2 HOURS BEFORE BREAKFAST Stop Phentermine HCl Tablet, 37.5 MG, Oral, 30, TAKE 1 TABLET BY MOUTH EVERY DAY 1 TO 2 HOURS BEFORE BREAKFAST Stop Plaquenil Tablet, 200 MG, Oral, 180, take 2 tablets (400 mg) by oral route once daily for 90 days, 90 Stop predniSONE Tablet, 5 MG, Oral, 42, take 3 tablets by oral route daily for 7 days, then 2 tablets QD for 7 days, then 1 tablet QD for 7 days, 1 Stop Spironolactone Tablet, 50 MG, Oral, 30, take 1 tablet (50 mg) by oral route once daily for 30 days, 1, 30 Stop Potassium Chloride ER Capsule Extended Release, 10 MEQ, Oral, 120, take 2 capsules (20 meq) by oral route twice daily with food, 1 Stop Wegovy Solution Auto-injector, 0.25 MG/0.5ML, Subcutaneous, 2, inject 0.25 mg by subcutaneous route once weekly on the same day of each week, [id number] Stop Benzonatate Capsule, 200 MG, Oral, 30, take 1 capsule (200 mg) by oral route 3 times per day as needed for cough for 10 days, 3, 10 Stop Macrobid Capsule, 100 MG, Oral, 14, take 1 capsule (100 mg) by oral route 2 times per day with food for 7 days, 2, 7 Stop predniSONE Tablet, 10 MG, Oral, 11, 4 po together x one day then 3 po x one day then 2 po x one day then one po daily x 2 days Stop Adderall Tablet, 10 MG, Oral, 60, take 1 tablet (10 mg) by oral route 2 times per day before breakfast and at noon for 30 days, 2, 30 Stop Adderall Tablet, 10 MG, Oral, 60, take 1 tablet (10 mg) by oral route 2 times per day before breakfast and at noon for 30 days, 2, 30 Stop Adderall Tablet, 10 MG, Oral, 60, take 1 tablet (10 mg) by oral route 2 times per day before breakfast and at noon for 30 days, 2, 30 Stop Amoxicillin-Pot Clavulanate Tablet, 875-125 MG, Oral, 20, take 1 tablet by oral route every 12 hours for 10 days Take with food and Eat some Yogurt Call MD if develop loose stools, 2, 10 Stop Cipro Tablet, 250 MG, Oral, 14, take 1 tablet (250 mg) by oral route every 12 hours for 7 days, 2, 7 Stop Cipro Tablet, 250 MG, Oral, 14, take 1 tablet (250 mg) by oral route every 12 hours for 7 days, 2, 7 Stop Enbrel SureClick Solution Auto-injector, 50 MG/ML, Subcutaneous, 4, inject 1 milliliter (50 mg) by subcutaneous route once weekly for 30 days, [id number], 30 Stop Folic Acid Tablet, 1 MG, Oral, 90, take 1 tablet (1 mg) by oral route once daily for 90 days, , 90 Stop Folic Acid Tablet, 1 MG, Oral, 90, take 1 tablet (1 mg) by oral route once daily for 90 days, , 90 Stop Phentermine HCl Tablet, 37.5 MG, Oral, 30, one daily, 1, 30 Stop Tetracaine HCl Solution, 0.5 %, Ophthalmic, 1, instill 1 drop in affected eye 4 times a day, 4 Stop valACYclovir HCl Tablet, 1 GM, Oral, 21, take 1 tablet (1,000 mg) by oral route 3 times per day for 7 days, 3, 7 Stop Adderall Tablet, 10 MG, Oral, 60, take 1 tablet (10 mg) by oral route 2 times per day before breakfast and at noon for 30 days, 2, 30 Stop Cefuroxime Axetil Tablet, 500 MG, Oral, 20, take 1 tablet (500 mg) by oral route every 12 hours for 10 days, 2, 10 Stop Naproxen Tablet, 500 MG, Oral, 60, take 1 tablet (500 mg) by oral route 2 times per day with food, 2 Stop Neurontin Capsule, 300 MG, Oral, 30, take 1 capsule (300 mg) by oral route Q bed, 3, 30 Stop Phentermine HCl Tablet, 37.5 MG, Oral, 30, take one-half tablet (18.75 mg) by oral route once daily before breakfast, 1 Stop Phentermine HCl Tablet, 37.5 MG, Oral, 30, take 1 tablet (37.5 mg) by oral route once daily one or two hours after breakfast for 30 days, 1, 30 Stop predniSONE Tablet, 10 MG, Oral, 20, 4 po together x 2 days then 3 po x 2 days then 2 po x 2 days then 1 x2 days, 3 Stop predniSONE Tablet, 10 MG, Oral, 20, 4 po together x 2 days then 3 po x 2 days then 2 po x 2 days then 1 x2 days, 3 Stop sulfaSALAzine Tablet, 500 MG, Oral, 0, 2 po Q PM and 2 PO BID if Flair, 4, 30 Stop sulfaSALAzine Tablet, 500 MG, Oral, 120, take 1 tablet (500 mg) by oral route 2 times per day after meals, 4, 60 Stop Adderall Tablet, 10 MG, Oral, 60, take 1 tablet (10 mg) by oral route 2 times per day before breakfast and at 2 pm for 30 days, 2, 30 Stop HYDROcodone-Acetaminophen Tablet, 10-325 MG, Oral, 180, take 1 tablet by oral route every 4-6 hours as needed for pain, 6 Stop HYDROcodone-Acetaminophen Tablet, 10-325 MG, Oral, 120, take 1 tablet by oral route every 4-6 hours as needed for pain, 6 Stop Methotrexate Sodium Tablet, 2.5 MG, Oral, 40, take 10 tablets once weekly, 1, 30 Stop Metrogel Gel, 1 %, External, 1, apply a thin layer to the affected area(s) after washing by topical route once daily ; rub in gently and completely for 30 days, 1, 30 Stop Phentermine HCl Tablet, 37.5 MG, Oral, 30, one daily, 1, 30 Stop predniSONE Tablet, 10 MG, Oral, 28, 4 po x 2 days then 3 po x 2 days then 2 x 2 days then 1 for 5 days then half a tablet for 5 days then half tablet every other day for 5 doses and stop Stop predniSONE Tablet, 10 MG, Oral, 20, 4 po QD x 2 days then 3po QD x 2 days then 2 po QD x 2 days then one x 2 days Stop predniSONE Tablet, 10 MG, Oral, 16, 4 po together x 1 days then 3 po x 2 days then 2 po x 2 days then 1 x2 days, 3 Stop traZODone HCl Tablet, 50 MG, Oral, 30, take 1 tablet (50 mg) by oral route once daily at bedtime, 1 Stop TOPIRAMATE 25MG TABLETS, 30, TAKE 1 TABLET(25 MG) BY MOUTH EVERY DAY, 30 Stop Adderall Tablet, 10 MG, Oral, 60, take 1 tablet (10 mg) by oral route 2 times per day before breakfast and at noon for 30 days, 2, 30 Stop Amoxicillin-Pot Clavulanate Tablet, 875-125 MG, Oral, 20, take 1 tablet by oral route every 12 hours, 2 Stop Folic Acid Tablet, 1 MG, Oral, 90, take 1 tablet (1 mg) by oral route once daily for 90 days, 1, 90 Stop Lasix Tablet, 40 MG, Oral, 30, take 1 tablet (40 mg) by oral route once daily for 30 days, 1, 30 Stop Macrobid Capsule, 100 MG, Oral, 14, take 1 capsule (100 mg) by oral route every 12 hours with food for 7 days, 2, 7 Stop Phenazopyridine HCl Tablet, 200 MG, Oral, 6, take 1 tablet (200 mg) by oral route 3 times per day after meals for 2 days, 3, 2 Stop Phenazopyridine HCl Tablet, 200 MG, Oral, 6, take 1 tablet (200 mg) by oral route 3 times per day after meals for 2 days, 3, 2 Stop Phentermine HCl Tablet, 37.5 MG, Oral, 30, one alternating with one half every other day, 1, 30 Stop Phentermine HCl Tablet, 37.5 MG, Oral, 30, one daily, 1, 30 Stop Phentermine HCl Tablet, 37.5 MG, Oral, 30, one daily, 1, 30 Stop Phentermine HCl Tablet, 37.5 MG, Oral, 30, take 1 tablet (37.5 mg) by oral route once daily one or two hours after breakfast for 30 days, 1, 30 Stop Phentermine HCl Tablet, 37.5 MG, Oral, 30, take 1 tablet (37.5 mg) by oral route once daily one or two hours after breakfast for 30 days, 1, 30 Stop Phentermine HCl Tablet, 37.5 MG, Oral, 30, TAKE 1 TABLET BY MOUTH EVERY DAY 1 OR 2 HOURS BEFORE BREAKFAST Stop Phentermine HCl Tablet, 37.5 MG, Oral, 30, TAKE 1 TABLET BY MOUTH ONCE DAILY 1 TO 2 HOURS BEFORE BREAKFAST Stop Phentermine HCl Tablet, 37.5 MG, Oral, 30, TAKE 1 TABLET BY MOUTH EVERY DAY 1 TO 2 HOURS BEFORE BREAKFAST Stop predniSONE Tablet, 10 MG, Oral, 20, 4 po QD x 2 days then 3po QD x 2 days then 2 po QD x 2 days then one x 2 days Stop predniSONE Tablet, 10 MG, Oral, 20, 4 po x 2 days then 3po x 2 days then 2 po x 2 days then one daily x 2 days, 4 Stop predniSONE Tablet, 5 MG, Oral, 42, take 3 tablets by oral route daily for 7 days, then 2 tablets QD for 7 days, then 1 tablet QD f, 1 Stop Spironolactone Tablet, 100 MG, Oral, 30, take 1 tablet (100 mg) by oral route once daily, 1, 30 Stop NIFEdipine ER Osmotic Release Tablet Extended Release 24 Hour, 30 MG, Oral, 30, take 1 tablet (30 mg) by oral route once daily for 30 days, 1, 30 Stop vicodin 5/500, 60, 1/2-one every 6 hrs as needed Stop Adderall Tablet, 10 MG, Oral, 60, take 1 tablet (10 mg) by oral route 2 times per day before breakfast and at noon no phentermine while taking, 2 Stop Cymbalta Capsule Delayed Release Particles, 30 MG, Oral, 30, take 1 capsule (30 mg) by oral route once daily with food, 1, 30 Stop Macrobid Capsule, 100 MG, Oral, 14, take 1 capsule (100 mg) by oral route every 12 hours with food for 7 days, 2, 7 Stop Percocet Tablet, 5-325 MG, Oral, 100, take 1 - 2 tablets by oral route every 4-6 hours as needed for 30 days, 6, 30 Stop Phentermine HCl Tablet, 37.5 MG, Oral, 30, TAKE 1 TABLET BY MOUTH EVERY DAY 1 TO 2 HOURS BEFORE BREAKFAST Stop Multivitamin Tablet, Oral, 30.00, 1 Every Day Stop Adderall Tablet, 10 MG, Oral, 60, take 1 tablet (10 mg) by oral route 2 times per day before breakfast and at noon for 30 days, 2, 30 Stop Ciprofloxacin HCl Solution, 0.30%, Ophthalmic, 1, instill 1 drop into affected eye(s) Q 2 hrs while awake for 2 days then 1 drop Q 4 hrs while awake for 5 days, 12, 2 Stop Clarithromycin Tablet, 500 MG, Oral, 20, take 1 tablet (500 mg) by oral route every 12 hours for 10 days, 2, 10 Stop HYDROcodone-Acetaminophen Tablet, 10-325 MG, Oral, 120, take 1 tablet by oral route every 4-6 hours as needed for pain for 30 days, 6, 30 Stop HYDROcodone-Acetaminophen Tablet, 10-325 MG, Oral, 180, take 1 tablet by oral route every 4-6 hours as needed for pain, 6, 30 Stop Topamax Tablet, 25 MG, Oral, 30, take 1 tablet (25 mg) by oral route once daily, 1, 30 Stop vicodin 5/500, 60, 1/2-one every 6 hrs as needed Stop Adderall Tablet, 10 MG, Oral, 60, take 1 tablet (10 mg) by oral route 2 times per day before breakfast and at noon no phentermine while taking, 2 Stop Adderall Tablet, 10 MG, Oral, 60, take 1 tablet (10 mg) by oral route 2 times per day before breakfast and at noon no phentermine while taking, 2 Stop Adderall Tablet, 10 MG, Oral, 60, take 1 tablet (10 mg) by oral route 2 times per day before breakfast and at 2 pm for 30 days, 2, 30 Stop Adderall Tablet, 10 MG, Oral, 60, take 1 tablet (10 mg) by oral route 2 times per day before breakfast and at noon for 30 days, 2, 30 Stop Amoxicillin-Pot Clavulanate Tablet, 875-125 MG, Oral, 20, take 1 tablet by oral route every 12 hours for 10 days, 2, 10 Stop Cyclobenzaprine HCl Tablet, 10 MG, Oral, 30, take one-half tablet (5 mg) by oral route 3 times per day as needed, 3 Stop Humira Pen Pen-injector Kit, 40 MG/0.4ML, Subcutaneous, 2, inject 0.4 milliliter (40 mg) by subcutaneous route every 2 weeks in the abdomen or thigh (rotate sites), [id number], 30 Stop HYDROcodone-Acetaminophen Tablet, 10-325 MG, Oral, 120, take 1 tablet by oral route every 4-6 hours as needed for pain, 6 Stop HYDROcodone-Acetaminophen Tablet, 10-325 MG, Oral, 180, take 1 tablet by oral route every 4-6 hours as needed for pain, 6, 30 Stop HYDROcodone-Acetaminophen Tablet, 10-325 MG, Oral, 180, take 1 tablet by oral route every 4-6 hours as needed for pain, 6, 30 Stop Phentermine HCl Tablet, 37.5 MG, Oral, 30, one alternating with one half every other day, 1, 30 Stop Phentermine HCl Tablet, 37.5 MG, Oral, 30, one alternating with one half every other day, 1, 30 Stop predniSONE Tablet, 10 MG, Oral, 11, 4 po together x one day then 3 po x one day then 2 po one day then one po x 2days, 1 Stop predniSONE Tablet, 10 MG, Oral, 20, 4 po x 2 days then 3po x 2 days then 2 po x 2 days then one daily x 2 days, 4 Stop predniSONE Tablet, 10 MG, Oral, 20, 4 po daily x 2 days then 3 po daily x 2 days then 2 daily x 2 days then one daily x 2 days, 1 Stop Proventil HFA Aerosol Solution, 108 (90 Base) MCG/ACT, Inhalation, 1, inhale 2 puffs (180 mcg) by inhalation route every 4-6 hours as needed, 6 Stop Adderall Tablet, 10 MG, Oral, 60, take 1 tablet (10 mg) by oral route 2 times per day before breakfast and at noon for 30 days, 2, 30 Stop Adderall Tablet, 10 MG, Oral, 60, take 1 tablet (10 mg) by oral route 2 times per day before breakfast and at noon for 30 days, 2, 30 Stop Adderall Tablet, 10 MG, Oral, 60, take 1 tablet (10 mg) by oral route 2 times per day before breakfast and at noon for 30 days, 2, 30 Stop Bactrim DS Tablet, 800-160 MG, Oral, 14, take 1 tablet by oral route every 12 hours for 7 days, 2, 7 Stop Cefdinir Capsule, 300 MG, Oral, 20, take 1 capsule (300 mg) by oral route every 12 hours for 10 days, 2, 10 Stop HYDROcodone-Acetaminophen Tablet, 10-325 MG, Oral, 180, take 1 tablet by oral route every 4-6 hours as needed for pain, 6, 30 Stop Methotrexate Sodium Tablet, 2.5 MG, Oral, 28, take 7 tablets once weekly, 1, 30 Stop Metrogel Gel, 1 %, External, 1, apply a thin layer to the affected area(s) of face after washing by topical QD ; rub in gently and completely, 1, 30 Stop Phenazopyridine HCl Tablet, 200 MG, Oral, 6, take 1 tablet (200 mg) by oral route 3 times per day after meals for 2 days, 3, 2 Stop Phentermine HCl Tablet, 37.5 MG, Oral, 30, one daily, 1, 30 Stop Phentermine HCl Tablet, 37.5 MG, Oral, 30, take 1 tablet (37.5 mg) by oral route once daily one or two hours after breakfast for 30 days, 1, 30 Stop Phentermine HCl Tablet, 37.5 MG, Oral, 30, take 1 tablet (37.5 mg) by oral route once daily one or two hours after breakfast for 30 days, 1, 30 Stop Phentermine HCl Tablet, 37.5 MG, Oral, 30, take 1 tablet (37.5 mg) by oral route once daily one or two hours after breakfast for 30 days, 1, 30 Stop Phentermine HCl Tablet, 37.5 MG, Oral, 30, TAKE 1 TABLET BY MOUTH EVERY DAY 1 OR 2 HOURS BEFORE BREAKFAST Stop Phentermine HCl Tablet, 37.5 MG, Oral, 30, TAKE 1 TABLET BY MOUTH EVERY DAY 1 OR 2 HOURS BEFORE BREAKFAST Stop predniSONE Tablet, 10 MG, Oral, 10, Take one tablet orally for 5 days then half a tablet for 5 days then half tablet every other day for 5 doses and stop, 21 Stop Qsymia Capsule Extended Release 24 Hour, 3.75-23 MG, Oral, 30, take 1 capsule by oral route once daily in the morning, 1, 30 Stop TOPIRAMATE 25MG TABLETS, 30, TAKE 1 TABLET(25 MG) BY MOUTH EVERY DAY, 30 Stop Amoxicillin-Pot Clavulanate Tablet, 875-125 MG, Oral, 20, take 1 tablet by oral route every 12 hours for 10 days, 2, 10 Stop Colchicine Tablet, 0.6 MG, Oral, 30.00, 1 Every Day Stop Demerol Tablet, 50 mg, Oral, 180, take half to one by oral route every 4 hours as needed, 6 Stop Humira Pen Pen-injector Kit, 40 MG/0.4ML, Subcutaneous, 2, inject 0.4 milliliter (40 mg) by subcutaneous route every 2 weeks in the abdomen or thigh (rotate sites), [id number], 30 Stop HYDROcodone-Acetaminophen Tablet, 5-325 MG, Oral, 60, take one half to 1 tablet by oral route every 4-6 hours as needed for pain, 6 Stop HYDROcodone-Acetaminophen Tablet, 10-325 MG, Oral, 120, take 1 tablet by oral route every 4-6 hours as needed for pain, 6 Stop HYDROcodone-Acetaminophen Tablet, 10-325 MG, Oral, 180, take 1 tablet by oral route every 4-6 hours as needed for pain, 6, 30 Stop Ivermectin cream, 1 %, topical, 1, apply a pea-sized amount by topical route once daily to cover areas of face with thin layer avoiding the eyes and lips, 1 Stop Methotrexate Sodium Tablet, 2.5 MG, Oral, 20, take 4 tablets once weekly, 1, 30 Stop Methotrexate Sodium Tablet, 2.5 MG, Oral, 20, take 4 tablets once weekly, 1, 30 Stop Phentermine HCl Tablet, 37.5 MG, Oral, 30, take 1 tablet (37.5 mg) by oral route once daily one or two hours after breakfast for 30 days, 1, 30 Stop Phentermine HCl Tablet, 37.5 MG, Oral, 30, TAKE 1 TABLET BY MOUTH EVERY DAY 1 TO 2 HOURS BEFORE BREAKFAST Stop Phentermine HCl Tablet, 37.5 MG, Oral, 30, TAKE 1 TABLET BY MOUTH EVERY DAY 1 TO 2 HOURS BEFORE BREAKFAST Stop Phentermine HCl Tablet, 37.5 MG, Oral, 30, TAKE 1 TABLET BY MOUTH EVERY DAY 1 TO 2 HOURS BEFORE BREAKFAST Stop predniSONE Tablet, 10 MG, Oral, 20, 4 po together x 2 days then 3 po x 2 days then 2 po x 2 days then 1 x2 days, 3 Stop predniSONE Tablet, 5 MG, Oral, 42, take 3 tablets by oral route daily for 7 days, then 2 tablets QD for 7 days, then 1 tablet QD for 7 days, 1 Stop Spironolactone Tablet, 50 MG, Oral, 30, take 1 tablet (50 mg) by oral route once daily for 30 days, 1, 30 Stop Zithromax Z-Adán Tablet, 250 MG, Oral, 6, take 2 tablets by oral route once daily for 1 day then 1 tablet by oral route once daily for 4 days, 1, 5 Stop Cimzia Prefilled Syringe Kit, 2 X 200 MG/ML, Subcutaneous, 1, inject 1 milliliter (200 mg) by subcutaneous route every 2 weeks, [id number], 30 Stop Adderall Tablet, 10 MG, Oral, 60, take 1 tablet (10 mg) by oral route 2 times per day before breakfast and at 2 pm for 30 days, 2, 30 Stop HYDROcodone-Acetaminophen Tablet, 10-325 MG, Oral, 180, take 1 tablet by oral route every 4-6 hours as needed for pain, 6, 30 Stop Leflunomide Tablet, 20 MG, Oral, 30, TAKE 1 TABLET(20 MG) BY MOUTH EVERY DAY, 30 Stop Monurol Packet, 3 GM, Oral, 1, take 1 sachet (3 gram) dissolved in 3 to 4 ounces (1/2 cup) of water by oral route as a single dose, 0 Stop Phentermine HCl Tablet, 37.5 MG, Oral, 30, one alternating with one half every other day, 1, 30 Stop Phentermine HCl Tablet, 37.5 MG, Oral, 30, TAKE 1 TABLET BY MOUTH EVERY DAY 1 OR 2 HOURS BEFORE BREAKFAST Stop predniSONE Tablet, 10 MG, Oral, 20, 4 po daily x 2 days then 3 po daily x 2 days then 2 daily x 2 days then one daily x 2 days, 1 Stop predniSONE Tablet, 10 MG, Oral, 20, 4 po together x 2 days then 3 po x 2 days then 2 po x 2 days then 1 x2 days, 3 Stop Valium Tablet, 5 MG, Oral, 30, one po q bed, 4, 30 Stop Valium Tablet, 5 MG, Oral, 30, one po q bed, 4, 30 Stop PHENTERMINE 37.5MG TABLETS, 30, TAKE 1 TABLET BY MOUTH EVERY DAY 1 TO 2 HOURS BEFORE BREAKFAST, 30 Stop PHENTERMINE 37.5MG TABLETS, 30, TAKE 1 TABLET BY MOUTH EVERY DAY 1-2 HOURS PRIOR TO BREAKFAST, 30 Stop Adderall Tablet, 10 MG, Oral, 60, take 1 tablet (10 mg) by oral route 2 times per day before breakfast and at noon for 30 days, 2, 30 Stop Adderall Tablet, 10 MG, Oral, 60, take 1 tablet (10 mg) by oral route 2 times per day before breakfast and at noon for 30 days, 2, 30 Stop Adderall Tablet, 10 MG, Oral, 60, take 1 tablet (10 mg) by oral route 2 times per day before breakfast and at noon for 30 days, 2, 30 Stop Amoxicillin-Pot Clavulanate Tablet, 875-125 MG, Oral, 20, take 1 tablet by oral route every 12 hours for 10 days, 2, 10 Stop HYDROcodone-Acetaminophen Tablet, 5-325 MG, Oral, 30.00, 1/2-one every 6hrs as needed Stop Phentermine HCl Tablet, 37.5 MG, Oral, 30, one daily, 1, 30 Stop Phentermine HCl Tablet, 37.5 MG, Oral, 30, take 1 tablet (37.5 mg) by oral route once daily one or two hours after breakfast for 30 days, 1, 30 Stop Phentermine HCl Capsule, 30 mg, Oral, 30, take 1 capsule (30 mg) by oral route once daily before breakfast for 30 days, 1, 30 Stop predniSONE Tablet, 5 MG, Oral, 42, take 3 tablets by oral route daily for 7 days, then 2 tablets QD for 7 days, then 1 tablet QD for 7 days, 1 Stop Procardia XL Tablet Extended Release 24 Hour, 30 MG, Oral, 30, take 1 tablet (30 mg) by oral route once daily at bedtime, 1, 30 Stop Valium Tablet, 5 MG, Oral, 30, one po q bed, 4, 30 Stop Cimzia Prefilled Syringe Kit, 2 X 200 MG/ML, Subcutaneous, 1, inject 2 milliliters (400mg) by subcutaneous route Q2W for 30 days, then 1ml (200mg) subcutaneous injection every 2 weeks., 0.5, 30 Stop Adderall Tablet, 10 MG, Oral, 60, take 1 tablet (10 mg) by oral route 2 times per day before breakfast and at noon for 30 days, 2, 30 Stop Adderall Tablet, 10 MG, Oral, 60, take 1 tablet (10 mg) by oral route 2 times per day before breakfast and at noon for 30 days, 2, 30 Stop Adderall Tablet, 10 MG, Oral, 60, take 1 tablet (10 mg) by oral route 2 times per day before breakfast and at noon for 30 days, 2, 30 Stop Benzoyl Peroxide-Erythromycin Gel, 5-3 %, External, 1, apply to the affected area(s) by topical route 2 times per day in the morning and evening, 2 Stop Cymbalta Capsule Delayed Release Particles, 30 MG, Oral, 30, take 1 capsule (30 mg) by oral route once daily with food, 1, 30 Stop dilTIAZem HCl ER Beads Capsule Extended Release 24 Hour, 120 MG, Oral, 30, take 1 capsule (120 mg) by oral route once daily for 30 days, 1, 30 Stop Imuran Tablet, 50 mg, Oral, 30, take 1 tablet (50 mg) by oral route once daily for 30 days, 1, 30 Stop Leflunomide Tablet, 20 MG, Oral, 30, take 1 tablet (20 mg) by oral route once daily for 30 days, 1, 30 Stop levoFLOXacin Tablet, 500 MG, Oral, 10, take 1 tablet (500 mg) by oral route once daily for 10 days Report any tendon pain, 1, 10 Stop Medrol Tablet Therapy Pack, 4 MG, Oral, 1, take by oral route as directed per package instructions, 0 Stop Medrol Tablet Therapy Pack, 4 MG, Oral, 1, take by oral route as directed per package instructions for 6 days, 0, 6 Stop Medrol Tablet Therapy Pack, 4 MG, Oral, 1, take by oral route as directed per package instructions for 6 days, 0, [address] Tablet Delayed Release, 500 MG, Oral, 60, take 1 tablet (500 mg) by oral route 2 times per day with food, 2 Stop Plaquenil Tablet, 200 MG, Oral, 180, take 2 tablets (400 mg) by oral route once daily for 90 days, 1, 90 Stop predniSONE Tablet, 10 MG, Oral, 20, 4 po daily x 2 days then 3po daily x 2 days then 2 po daily x 2 days then one x 2 days, 10 Stop Valium Tablet, 5 MG, Oral, 30, one po q bed, 4, 30 Subjective: * Chief Complaints: * E MR-Zeyad * Medical History: * Surgical History: * Hospitalization/Major Diagno stic Procedure: * Medications: Objective: * Vitals: * Physical Examination: Assessment: Plan: * Treatment: * Procedure Codes: * true * Date: Generated for Martha pearson/Blaine/Kwabena on: 0 08/31/2024 01:19 PM CDT
--- OUTSIDE RECORDS SUMMARY | 2024-08-31 13:20 | XMS_ITS | Clinical Summary ---
Author Organization [facility] Address [address] [place] [address] Care Team Providers Care Craft Center Director Name Role Phone Carlie Powell MD Primary Care Provider Allergies No known active allergies Medications dilTIAZem CD 120 mg 24 hr capsule Take 120 mg by mouth daily 04/15/2021 Active leflunomide (ARAVA) 20 mg tablet Take 20 mg by mouth daily 04/09/2021 Active predniSONE (DELTASONE) 10 mg tablet 04/14/2021 Active Active Problems Problem Noted Date Diagnosed Date Tachycardia 04/16/2021 Assessment & Plan (04/16/2021 2:29 PM MANAGER MASS): Incidentally discovered sinus tachycardia. Asymptomatic. Resting heart rate appears to be mildly elevated, with exaggerated heart rate responses to moderate exertion. Occurring in the context of a structurally normal heart. No ECG changes concerning for inherited arrhythmia syndrome or predisposition to arrhythmia. Agree with ambulatory cardiac monitoring as already ordered in order to more thoroughly assess heart rate distributions and screen for arrhythmia. 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 I have reassured the patient that her heart is structurally normal and that there is no existing evidence that she has any abnormal heart rhythms. This is likely to improve with time, and no intervention is required in the absence of symptoms. --OK to try diltiazem (as prescribed by PCP) to assess for symptom improvement. If no improvement in dyspnea, recommend stopping. --Await results of 30d monitor. Will review and discuss with patient when available. --Encourage exercise and weight loss. --F/u PRN or sooner if abnormal results on monitor. Facial rash 05/26/2017 Muscle weakness 05/26/2017 Joint pain 05/08/2017 Facial erythema 05/08/2017 Surgical History Surgery Date Site/Laterality Comments HYSTERECTOMY Family History Medical History Relation Name Comments No Known Problems Father No Known Problems Mother Relation Name Status Comments Father Mother Social History Tobacco Use Types Packs/Day Years Used Date Smoking Tobacco: Never Smokeless Tobacco: Never Alcohol Use Standard Drinks/Week Comments Yes 0 (1 standard drink = 0.6 oz pur e alcohol) Comments Unknown Sex and Gender Information Value Date Recorded Sex Assigned at Not on file Legal Sex Female 10:03 AM MANAGER MASS Gender Identity Not on file Sexual Orientation Not on file Obstetrics History Last Filed Vital Signs Vital Sign Reading Time Taken Comments Blood Pressure 141/80 04/16/2021 1:36 PM MANAGER MASS Pulse 94 04/16/2021 1:36 PM MANAGER MASS Temperature 36.8 C (98.3 F) 05/26/2017 2:22 PM MANAGER MASS Respiratory Rate 18 04/16/2021 1:36 PM MANAGER MASS Oxygen Saturation 97% 05/26/2017 2:22 PM MANAGER MASS Inhaled Oxygen Concentration - - Weight 71.3 kg (157 lb 3.2 oz) 04/16/2021 1:36 P M MANAGER MASS Height 167.6 cm (5' 6 ) 04/16/2021 1:36 PM MANAGER MASS Body Mass Index 25.37 04/16/2021 1:36 PM MANAGER MASS Plan of Treatment Health Maintenance Due Date Last Done Comments Breast Cancer Screening-Mammogram 1974 Colon Cancer Screening-Colonoscopy 1974 Depression Screening 1974 DTaP/Tdap/Td Vaccine (1 - Tdap) 1985 Hepatitis B Screening 1992 Regular Well Visit/Exam 18-64 1992 Influenza Vaccine (#1) 2024 Zoster Vaccine (1 of 2) 2024 Hepatitis C Screening Completed 05/18/2017 Pneumococcal vaccine <65 Aged Out No longer eligible based on patient's age to complete this topic Procedures Procedure Name Priority Date/Time Associated Diagnosis Comments HEPATITIS C ANTIBODY Routine 05/18/2017 10:09 AM MANAGER MASS Arthralgia, unspecified joint from Last 3 Months or Most Recently Relevant to Health Maintenance Results * Hepatitis C antibody (05/18/2017 10:09 AM MANAGER MASS) Hep C Ab NON-REACTI VE NON-REACTI VE [facility] [place] SIGNAL TO CUT-OFF 0.09 <1.00 [facility] [place] Blood specimen (specimen) 05/18/2017 10:09 AM MANAGER MASS 05/18/2017 10:10 AM MANAGER MASS Narrative Resulting Agency Comment Performing Organization Information: Site ID: [id number] Name: [facility] Address: [address] [place] [address] Director: Meek Willoughby D.O., MPH us Candice Cho MD LAB MICROBIOLOGY - GENERAL ORDER DEB Final Result [facility] [place] from Last 3 Months or Most Recently Relevant to Health [place] [address] [facility] Care Teams Craft Center Director Relationship Specialty Start Date End Date Carlie Powell MD PCP - General 08/22/16
--- OUTSIDE RECORDS SUMMARY | 2024-08-31 13:20 | XMS_ITS | Clinical Summary ---
Author Organization [facility] Address [address] [place] [address] Care Team Providers Care Machine Brush Maker Name Role Phone Seda Kramer [facility] Primary Care Provider [phone] Allergies Active Allergy Reactions Criticality Noted Date Comments Duloxetine Hcl Headache 09/06/2014 Hydroxychloroquine Unknown 03/27/2019 Mycophenolate GI Upset 07/22/2019 Nifedipine Unknown 09/06/2014 Sulfasalazine Rash Low 09/30/2013 Medications albuterol sulfate HFA 108 (90 Base) MCG/ACT inhaler INHALE 2 PUFFS BY MOUTH EVERY 4 TO 6 HOURS NEEDED FOR COUGH OR BRONCHOSPASM 04/20/20 24 Active OZEMPIC 1 mg/dose injection (PEN) 04/04/20 24 Active testosterone 65 MG pellet ([facility]) 1 each (65 mg total) by Implant route once. Active estradiol 10 MG pellet 1 each (10 mg total) by Implant route once. Active predniSONE (DELTASONE) 20 MG tabletIndications :Systemic lupus erythematosus, unspecified SLE type, unspecified organ involvement status ([facility]) Take 2 tablets (40 mg total) by mouth daily. For flare 30 tablet 08/27/19 25 Active amphetamine-dextr oamphetamine (ADDERALL) 10 MG tabletIndications :Attention deficit hyperactivity disorder (ADHD), combined type Take 1 tablet (10 mg total) by mouth 2 (two) times daily. 60 tablet 08/27/19 25 Active predniSONE (DELTASONE) 20 MG tabletIndications :Systemic lupus erythematosus, unspecified SLE type, unspecified organ involvement status ([facility]) Take 2 tablets (40 mg total) by mouth daily. For flare 30 tablet 1 05/30/20 24 025 Discontin ued(Reord er) amphetamine-dextr oamphetamine (ADDERALL) 10 MG tabletIndications :Attention deficit hyperactivity disorder (ADHD), combined type Take 1 tablet (10 mg total) by mouth 2 (two) times daily. 60 tablet 08/01/19 25 025 Discontin ued(Reord er) Active Problems Problem Noted Date Diagnosed Date Adult BMI 25.0-25.9 kg/sq m 05/30/2024 Obesity 05/30/2024 ADHD (attention deficit hyperactivity disorder) 05/30/2024 Lupus (systemic lupus erythematosus) ([facility]) 05/30/2024 Reactive airway disease without complication ( S/[facility]) 05/30/2024 History of hysterectomy 05/30/2024 Vitamin D deficiency 05/30/2024 Post-menopausal 05/30/2024 Hormone replacement therapy (HRT) 05/30/2024 Rheumatoid arthritis ([facility]) 3 Encounters Date Type Department Care Team Description 08/04/2024 Telephone [facility] [address] [id number] Seda Kramer FNP Radiology Results 07/30/2024 Scan [employer] INFO SRVCS Scanned, Doc [facility] Mammogram (SCAN) 06/30/2024 Telephone [facility] [address] [address] Seda Kramer FNP Medication Request from Last 3 Months Social History Tobacco Use Types Packs/Day Years Used Date Smoking Tobacco: Never Smokeless Tobacco: Never Tobacco Cessation:Counseling Given: Not Answered Alcohol Use Standard Drinks/Week Comments Yes 0 (1 standard drink = 0.6 oz pur e alcohol) socially PHQ-2 Answer Date Recorded Patient Health Questionnaire-2 Score 0 05/30/2024 Comments Unknown Sex and Gender Information Value Date Recorded Sex Assigned at Not on file Legal Sex Female 7:57 PM CDT Gender Identity Not on file Sexual Orientation Not on file Last Filed Vital Signs Vital Sign Reading Time Taken Comments Blood Pressure 126/82 05/30/2024 10:41 AM YOKE PRESSER Pulse 96 05/30/2024 10:41 AM YOKE PRESSER Temperature 36.7 C (98.1 F) 05/30/2024 10:41 AM YOKE PRESSER Respiratory Rate 14 05/30/2024 10:41 AM YOKE PRESSER Oxygen Saturation 96% 05/30/2024 10:41 AM YOKE PRESSER Inhaled Oxygen Concentration - - Weight 70.4 kg (155 lb 3.2 oz) 05/30/2024 10:41 AM YOKE PRESSER Height 167.6 cm (5' 6 ) 05/30/2024 10:41 AM YOKE PRESSER Body Mass Index 25.05 05/30/2024 10:41 AM YOKE PRESSER Plan of Treatment Health Maintenance Due Date Last Done Comments Colorectal Cancer Screening Colonoscopy (10 Years) 1974 Annual Physical 1977 Pneumococcal Vaccine: Pediat rics (0 to 5 Years) and At-Risk Patients (6 to 64 Years) (1 of 2 - PCV) 1980 Hepatitis C 1992 Hepatitis B Vaccines (1 of 3 - 19+ 3-dose series) 1993 Zoster Vaccines (1 of 2) 2024 PHQ-2 (Physician [place]) 06/08/2024 05/30/2024 COVID-19 Vaccine (1 - 2023-2 5 season) 2025 Postponed from 02/06 (Patient Refused) DTaP, Tdap and Td Vaccines ( 1 - Tdap) 05/30/2025 Postponed from 03/04 (Patient Refused) Influenza Adult (#1) 2025 Postpon ed from 03/08/2024 (Patient Refused) Mammogram Screening 07/30/2026 07/30/2024 Meningococcal B Vaccine Aged Out No l onger eligible based on patient's age to complete this topic Meningococcal Vaccine Aged Out No danna perla eligible based on patient's age to complete this topic RSV Immunizations Under 20 Months Aged Out No longer eligible based on patient's age to complete this topic Procedures Procedure Name Priority Date/Time Associated Diagnosis Comments MAMMOGRAM GENERIC (SCAN ORDER) 07/30/2024 from Last 3 Months Results * MAMMOGRAM GENERIC (SCAN ORDER) (07/30/2024) Anatomical Region Laterality Modality Other 07/30/2024 us [facility] Scanned SCANNING Final Resu lt from Last 3 Months Insurance [employer] [facility] Care Teams Machine Brush Maker Relationship Specialty Start Date End Date Seda Kramer FNP [address] [place] [id number] PCP - General Nurse Practitioner Family 05/30/24
--- OUTSIDE RECORDS SUMMARY | 2024-08-31 13:20 | XMS_ITS ---
Author Organization [facility] brandan Address [address] [place] [address] Care Team Providers Care Bankman Name Role Phone Diane Caraballo Primary Care Provider Carlie Powell MD Unavailable Unavailable zzzzMigration, zzzzProvider Unavailable Unav ailable Allergies Allergen (clinical drug ingredient) Drug/Non Drug Allergy documented on EMR Reaction Allergy Type Onset Date Status mycophenolate mofetil CellCept Reaction: GI Upset Drug Allergy 07/22/2019 Active duloxetine Cymbalta Reaction: MORRIS Drug Allergy 09/06/2014 Ac tive hydroxychloroquine Plaquenil Unknown Drug Allergy 03/27/20 19 Active Procardia Unknown Drug Allergy 09/06/2014 Active sulfasalazine sulfaSALAzine Reaction: rash Drug Allergy 09/30/2013 Active REASON FOR VISIT EMR-Zeyad Medications Medication SIG (Take, Route, Frequency, Duration) Notes Start Date End Date Status Leflunomide 20 MG TAKE 1 TABLET(20 MG) BY MOUTH EVERY DAY Oral 06/10/2022 Active Ozempic (1 MG/DOSE) 4 MG/3ML inject 1 mg by subcutaneous route once weekly on the same day of each week Subcutaneous [id number] 02/10/2023 Active predniSONE 10 MG 4 po together x 2 da ys then 3 po x 2 days then 2 po x 2 days then 1 x2 days Oral 3 03/21/2023 Active Cimzia 2 X 200 MG/ML inject 1 milliliter (200 mg) by subcutaneous route every 2 weeks in the abdomen or thigh Subcutaneous [id number] 02/10/2023 Active Encounters Encounter Location Date Provider Diagnosis [facility] [address] [place] [address] 03/29/2023 zzzzProvider zzzzMigration Plan Of Treatment No Information Progress Notes * Maryanne LYNCH RDOB:[birth year] (49 yo F)Acc No.[id number]:03/29/2023 Patient: Marynane GUTIÉRREZ :1975 A ge:48 Y S ex:Female Phone: Address:[address] [place] [address], [phone] Subjective: * Chief Complaints: * E MR-Zeyad * Medical History: * OB History: M igrated OBHistory P regnancy:: Total Pregnancies: 1, Livin, . * Surgical History: H ysterectomy: Ovaries in 2/2 bleeding; 1161-50-32Kdxe surgery; 7817-58-39Wrewqkvevnrh; 8441-72-53Pkpboejzfqets; 2011-04-06 Fat Freezing ; 0060-97-63Shlrwr lift, Date of Procedure: Jun 2012; 2012-11-29 * Hospitalization/Major Diagno stic Procedure: * Family History: F ather: Father Notes: [employer] . M other: Mother Notes: . 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 * Medications: T akingpredniSONE 10 MG Tablet 4 po together x 2 days then 3 po x 2 days then 2 po x 2 days then 1 x2 days Oral 3 Ozempic (1 MG/DOSE) 4 MG/3ML Solution Pen-injector inject 1 mg by subcutaneous route once weekly on the same day of each week Subcutaneous [id number] Cimzia 2 X 200 MG/ML Prefilled Syringe Kit inject 1 milliliter (200 mg) by subcutaneous route every 2 weeks in the abdomen or thigh Subcutaneous [id number] Leflunomide 20 MG Tablet TAKE 1 TABLET(20 MG) BY MOUTH EVERY DAY Oral Taking predniSONE 10 MG Tablet 4 po together x 2 days then 3 po x 2 days then 2 po x 2 days then 1 x2 days Oral 3 Taking Ozempic (1 MG/DOSE) 4 MG/3ML Solution Pen-injector inject 1 mg by subcutaneous route once weekly on the same day of each week Subcutaneous [id number] Taking Cimzia 2 X 200 MG/ML Prefilled Syringe Kit inject 1 milliliter (200 mg) by subcutaneous route every 2 weeks in the abdomen or thigh Subcutaneous [id number]-51 Taking Leflunomide 20 MG Tablet TAKE 1 TABLET(20 MG) BY MOUTH EVERY DAY Oral * Allergies: C ellCept: Reaction: GI Upset - Allergy - Onset Date 07/22/2019Cymbalta: Reaction: MORRIS - Allergy - Onset Date 09/06/2014Plaquenil: Allergy - Onset Date 03/27/2019Procardia: Allergy - Onset Date 09/06/2014sulfaSALAzine: Reaction: rash - Allergy - Onset Date 09/30/2013 Objective: * Vitals: * Physical Examination: Assessment: Plan: * Treatment: * Procedure Codes: * true * Date: Generated for Martha pearson/Blaine/Soledaditting on: 0 08/31/2024 01:19 PM CDT
--- OUTSIDE RECORDS SUMMARY | 2024-08-31 13:20 | XMS_ITS | Referral Summary ---
Author Organization [facility] Address [address] [place] [address] Care Team Providers Care Solar Installation Manager Name Role Phone Carlie Powell MD Primary [...] 04/16/2021 Assessment & Plan (04/16/2021 2:29 PM PLUMBER SUPERVISOR): Incidentally discovered sinus tachycardia. Asymptomatic. Resting heart [...] 05/26/2017 Joint pain 05/08/2017 Facial erythema 05/08/2017 Social History Tobacco Use Types Packs/Day Years Used Date Smoking Tobacco: Never Smokeless Tobacco: Never Alcohol Use Standard Drinks/Week Comments Yes 0 (1 standard drink = 0.6 oz pur e alcohol) Comments Unknown Sex and Gender Information Value Date Recorded Sex Assigned at Not on file Legal Sex Female 10:03 AM PLUMBER SUPERVISOR Gender Identity Not on file Sexual Orientation Not on file Last Filed Vital Signs Vital Sign Reading Time Taken Comments Blood Pressure 141/80 04/16/2021 1:36 PM PLUMBER SUPERVISOR Pulse 94 04/16/2021 1:36 PM PLUMBER SUPERVISOR Temperature 36.8 C (98.3 F) 05/26/2017 2:22 PM PLUMBER SUPERVISOR Respiratory Rate 18 04/16/2021 1:36 PM PLUMBER SUPERVISOR Oxygen Saturation 97% 05/26/2017 2:22 PM PLUMBER SUPERVISOR Inhaled Oxygen Concentration - - Weight 71.3 kg (157 lb 3.2 oz) 04/16/2021 1:36 P M PLUMBER SUPERVISOR Height 167.6 cm (5' 6 ) 04/16/2021 1:36 PM PLUMBER SUPERVISOR Body Mass Index 25.37 04/16/2021 1:36 PM PLUMBER SUPERVISOR Plan of Treatment Not on file Procedures Procedure Name Priority Date/Time Associated Diagnosis Comments HEPATITIS C ANTIBODY Routine 05/18/2017 10:09 AM PLUMBER SUPERVISOR Arthralgia, unspecified joint from Last 3 Months or Most Recently Relevant to Health Maintenance Results * Hepatitis C antibody (05/18/2017 10:09 AM PLUMBER SUPERVISOR) Hep C Ab NON-REACTI VE NON-REACTI VE [facility] SIGNAL TO CUT-OFF 0.09 <1.00 [facility] Blood specimen (specimen) 05/18/2017 10:09 AM PLUMBER SUPERVISOR 05/18/2017 10:10 AM PLUMBER SUPERVISOR Narrative Resulting Agency Comment Performing Organization Information: Site ID: [id number] Name: [facility] Address: [address] [place] [address] Director: Meek Willoughby D.O., MPH us Candice Cho MD LAB MICROBIOLOGY - GENERAL ORDER DEB Final Result [facility] [place] from Last 3 Months or Most Recently Relevant to Health Maintenance Insurance CHOICE PLUS CHOICE PLUS [facility] CHOICE PLUS Care Teams Solar Installation Manager Relationship Specialty Start Date End Date Carlie Powell MD PCP - General 08/22/16
== END 2024-08-31 12:05 | disposition home or self-care (01) ==
LOC: ANHIMG 12:07
PROVIDERS: PCP Nurse Practitioner Family; Visit Provider Nurse Practitioner Family
DX: Z78.0 Asymptomatic menopausal state (principal); M85.851 Other specified disorders of bone density and structure, right thigh
CPT/HCPCS: 77080